=== PATIENT | female | born 1950 | race Caucasian/White ===

== ENCOUNTER → 2017-10-23 | Outpatient (CLI) | payer MEDICARE ==
--- NOTE | 2017-10-23 18:02 | MR ---
EXAMINATION TYPE: MR knee LT wo con DATE OF EXAM: 10/23/2017 COMPARISON: Outside radiographs dated 10/06/2017 HISTORY: Inner and outer knee pain after injury in February 2017. The patient notes this was a twisting in jury TECHNIQUE: Multiplanar, multisequence imaging of the left knee is performed without IV contrast. FINDINGS: MEDIAL MENISCUS: The posterior horn of the medial meniscus is diminutive in size in comparison to the anterior horn and also heterogenous signal without distinct tear although tear is suspected based on morphology. A radial cleft is seen on the coronal PD fat-sat image 18 through 20. There is no menisc al cyst or extension into the posterior root. LATERAL MENISCUS: There is a complex tear of the anterior horn of the lateral meniscus as it is dimin utive and caliber in comparison to the posterior horn with heterogenous internal signal. This extends into the meniscal root anteriorly with 8 mm meniscal cyst at the meniscal root and 5 mm meniscal cys t along the lateral tibial plateau. CRUCIATE LIGAMENTS: There is diffuse thickening of the anterior cruciate ligament suggestive of mucin ous degeneration. No evidence of tear of the anterior or posterior cruciate ligament. COLLATERAL LIGAMENTS: The medial collateral ligament and lateral collateral ligament complex are inta ct although high signal is seen superficial to the MCL fibers indicative of grade 1 (low-grade) MCL s prain. MCL fibers are intact. EXTENSOR MECHANISM: Visualized quadriceps and patellar tendons are intact. EFFUSION: Moderate suprapatellar joint effusion with minimal internal complexity indicating synoviti s is seen with nonspecific prepatellar and infrapatellar subcutaneous edema. POPLITEAL CYST: Large multiloculated popliteal cyst emanates from the medial head of the gastric ane mias and semimembranosus tendon measuring 19.8 x 6.1 x 3.3 cm. CARTILAGE: Focal full-thickness cartilage defect of the weightbearing surface of the medial femoral c ondyle measures at least 1.7 x 1.9 cm with a PD hypointense curvilinear fragment with surrounding hyp erintensity suggestive of unstable osteochondral defect. There is global heterogeneity and mild thinning of the lateral compartment cartilage without focal de fect. There is focal fissuring of the patellar apex with underlying linear bone marrow edema. Heterog eneity of the lateral facet is also seen as well as heterogeneity of the trochlear cartilage without tear. Tricompartmental joint space narrowing is also noted. BONE MARROW SIGNAL: No focal abnormal marrow signal is appreciated. OTHER: High signal surrounds the semimembranosus tendon and there is some signal duration within the semimembranosus tendon near its insertion suggesting low-grade muscular strain. IMPRESSION: 1. Complex tear of the anterior horn of the lateral meniscus extending into the meniscal root with 8 mm meniscal root cyst and 5 mm meniscal cyst along the lateral tibial plateau. 2. Complex but predominantly radial tear of the posterior horn of the medial meniscus without menisca l cyst or extrusion. 3. Moderate mildly complex suprapatellar joint effusion indicating synovitis. Nonspecific prepatellar and infrapatellar subcutaneous edema. 4. Grade 1 MCL sprain without discontinuity. 5. Full-thickness cartilaginous defect of the weightbearing surface of the medial femoral condyle bashir suring 1.7 x 1.9 cm with underlying unstable osteochondral defect. 6. Tricompartmental chondrosis and osteoarthritic changes. 7. Large multiloculated popliteal cyst measuring up to 19.8 cm in craniocaudal dimension. 8. Low-grade semimembranosus tendinosis. 9. Mucoid degeneration of the ACL.
== END ==
LOC: RADMRIMAIN 13:02
PROVIDERS: ATTEND Orthopaedic Surgery
DX: M23.052 Cystic meniscus, posterior horn of lateral meniscus, left knee (principal); M17.12 Unilateral primary osteoarthritis, left knee; M71.22 Synovial cyst of popliteal space [Baker], left knee; M65.9 Synovitis and tenosynovitis, unspecified; M94.8X6 Other specified disorders of cartilage, lower leg

== ENCOUNTER 2017-12-09 09:11 | Day surgery (SDC) | payer MEDICARE ==
[2017-12-04 11:29] VITALS: BMI 29.9
--- NOTE | 2017-12-08 12:37 | HP ---
HISTORY AND PHYSICAL DATE OF SERVICE: 12/09/2017 Bernadette Flynn is a 67-year-old patient seen with progressive left knee pain. Treatment options were discussed with her. She elected to proceed with arthroscopy. Consent was obtained. Medical clearance was provided by Dr. Arechiga. PAST MEDICAL HISTORY: Hypertension, hypothyroidism, hyperlipidemia. PAST SURGICAL HISTORY: Right ankle surgery, cardiac catheterization, hysterectomy, right knee arthroscopy, left shoulder arthroscopy, thyroidectomy. DAILY MEDICATIONS: 1. Altace. 2. Cardizem. 3. Flexeril. 4. Lipitor. 5. Mobic. 6. Synthroid. 7. Zyrtec. ALLERGIES: PENICILLIN, NORVASC, FLAGYL. SOCIAL HISTORY: Patient denies current tobacco use. PHYSICAL EVALUATION OF THE LEFT KNEE: Range of motion is 0 to 125 degrees. Tenderness along the medial and lateral joint lines. Positive medial Hayde's. Positive lateral Hayde's. Crepitus medial and patellofemoral compartments. Ligaments stable. Hip rotation without pain. Distal neurovascular exam intact. Left knee radiographs revealed mild osteoarthritis. MRI of the left knee revealed medial and lateral meniscal tears. IMPRESSION: 1. Internal derangement of the left knee with medial and lateral meniscal tears. 2. Hypertension. 3. Hypothyroidism. 4. Hyperlipidemia. PLAN: Left knee arthroscopy with partial meniscectomy and debridement. MMODL / IJN: [id number] /
[~2017-12-09 09:11] MED LIST: CLINDAMYCIN 900 MG in DEXTROSE 5% IN WATER 50 ML IVPB ONE; LACTATED RINGERS 1,000 ML IV SCH
[2017-12-09 10:04] VITALS: TEMP 97.2
[2017-12-09] MEDS ORDERED: DEXAMETHASONE SOD PHOS (MDV) 100 MG/10 ML VIAL IV ONE (10:20)
[2017-12-09] MEDS ORDERED: ONDANSETRON 4 MG/2 ML VIAL IVP ONE (10:20)
[2017-12-09] MEDS ORDERED: LIDOCAINE 1% 20 ML VIAL (10MG/ML) FOR IV START INTRADERMA ONE (10:20)
[2017-12-09] MEDS ORDERED: HYDROmorphone (PF) 1 MG/ML ONE (12:05)
[2017-12-09] MEDS ORDERED: KETOROLAC 30 MG/ML 1 ML VIAL ONE (12:05)
[2017-12-09] MEDS ORDERED: LIDOCAINE 1% INJ 10MG/ML (20 ML MDV) ONE (12:05)
[2017-12-09] MEDS ORDERED: fentaNYL (PF) 50 MCG/ML 2 ML AMP ONE (12:05)
[2017-12-09] MEDS ORDERED: MIDAZOLAM 2 MG/2 ML VIAL ONE (12:05)
[2017-12-09] MEDS ORDERED: PROPOFOL 10 MG/ML 20 ML VIAL IV ONE (12:05)
[2017-12-09] MEDS ORDERED: BUPIVACAINE (PF) 0.25% 30 ML VIAL SQ ONE ×2 (12:23→12:40)
--- NOTE | 2017-12-09 12:54 | P.OP ---
Date of Procedure: 12/09/17 Preoperative Diagnosis: Internal derangement left knee Postoperative Diagnosis: 1. Tear medial and lateral meniscus left knee 2. Grade 3/4 chondromalacia medial femoral condyle left knee 3. Grade 2 chondromalacia lateral tibial plateau left knee 4. Grade 3 chondromalacia patella left knee 5. Reactive synovitis medial and suprapatellar compartments left knee Procedure(s) Performed: 1. Arthroscopic partial medial and lateral meniscectomy left knee 2. Arthroscopic chondroplasty medial femoral condyle left knee 3. Arthroscopic chondroplasty lateral tibial plateau left knee 4. Arthroscopic chondroplasty patella left knee 5. Arthroscopic partial synovectomy medial and suprapatellar compartments left knee Implants: None Anesthesia: INDIGOA, local Surgeon: Damian Hunt Estimated Blood Loss (ml): 5 Pathology: none sent Condition: stable Disposition: PACU Indications for Procedure: 67-year-old patient seen with progressive left knee pain. After having treatment options discussed, she elected to proceed with arthroscopy. Operative Findings: See description of procedure Description of Procedure: Patient was taken to the operative suite. Patient underwent a general anesthetic by the department of anesthesia. Patient was given preoperative antibiotics. The left lower extremity was placed in a well-padded arthroscopic leg holbrook. The left leg was prepped and draped in the normal sterile orthopedic fashion. A lateral parapatellar and suprapatellar incision was made. Trochars were inserted. Arthroscopy was initiated. Suprapatellar pouch revealed diffuse thick reactive synovitis. The patellofemoral joint appeared to articulate congruently. There was grade 3 chondromalacia of the patella mainly involving the lateral facet with osteochondral tears. The scope was guided into the medial gutter. No loose bodies or plica were identified. The scope was then guided into the medial compartment. A medial parapatellar incision was made. Trocar inserted followed by probe. There was a complex tear posterior horn medial meniscus extending into the midbody. There was an area of grade 3/4 chondromalacia weightbearing surface medial femoral condyle with peripheral osteochondral tears present. There was synovitis anteriorly. I performed a partial medial meniscectomy down to stable tissue. I performed a chondroplasty of the femoral condyle down to stable tissue and partial synovectomy. The residual meniscus and osteochondral surface were found to be stable. Scope and probe were then guided into the intercondylar notch. Cruciates were identified, probed and found to be stable. The scope and probe were then guided into lateral compartment. There was a radial tear mid body lateral meniscus. There were grade 2 chondromalacia changes of the lateral tibial plateau with some osteochondral tears present. The medial femoral condyle revealed grade 1 chondromalacia but no osteochondral tears. I performed a partial lateral meniscectomy down to stable tissue. I performed a chondroplasty of the lateral tibial plateau down to stable tissue. The residual meniscus and osteochondral surface of the lateral tibial plateau were probed and found to be stable. The scope was in guided back into the suprapatellar compartment. I introduced a motorized shaver into the suprapatellar compartment. I debrided some piecemeal fragments of meniscus I encountered. I performed a chondroplasty of the patella down to stable tissue. I performed a partial synovectomy. Shaver was removed. I took one more look on the entire knee, no residual debris. Instruments were now removed from the joint. The joint was infiltrated with .25% Marcaine. Steri-Strips were applied to the portal sites. Sterile dressings were applied. The patient was placed into a ISAAC hose. No tourniquet was utilized. The patient was awakened, transferred to a bed and taken to recovery stable satisfactory condition.
[2017-12-09] MEDS ORDERED: HYDROmorphone 0.5 MG/0.5 ML SYRINGE IVP ONE (13:18)
[2017-12-09] MEDS ORDERED: PROMETHAZINE INJ 25 MG/ML 1 ML VIAL IVPB ONE (13:54)
[2017-12-09 14:04] VITALS: RESP 18
[2017-12-09] MEDS ORDERED: HYDROcodone/APAP 5-325MG 1 EACH TAB PO ONE (15:01)
[2017-12-09 15:09] VITALS: PULSE 89
[2017-12-09 15:18] VITALS: BP 121/81
== END 2017-12-09 16:21 | disposition home or self-care (01) ==
LOC: OR 09:11
PROVIDERS: ATTEND Orthopaedic Surgery
DX: S83.232A Complex tear of medial meniscus, current injury, left knee, initial encounter (principal); S83.282A Other tear of lateral meniscus, current injury, left knee, initial encounter; X58.XXXA Exposure to other specified factors, initial encounter; M94.262 Chondromalacia, left knee; M22.42 Chondromalacia patellae, left knee; M65.862 Other synovitis and tenosynovitis, left lower leg; I10 Essential (primary) hypertension; I25.10 Atherosclerotic heart disease of native coronary artery without angina pectoris; E78.2 Mixed hyperlipidemia; M19.012 Primary osteoarthritis, left shoulder; E89.0 Postprocedural hypothyroidism; E55.9 Vitamin D deficiency, unspecified; J30.1 Allergic rhinitis due to pollen; M54.5 Low back pain; G89.29 Other chronic pain; N95.8 Other specified menopausal and perimenopausal disorders; M85.80 Other specified disorders of bone density and structure, unspecified site; Z79.82 Long term (current) use of aspirin; Z79.890 Hormone replacement therapy; Z79.1 Long term (current) use of non-steroidal anti-inflammatories (NSAID); Z79.51 Long term (current) use of inhaled steroids; Z79.899 Other long term (current) drug therapy; Z88.0 Allergy status to penicillin; Z88.8 Allergy status to other drugs, medicaments and biological substances; Z87.891 Personal history of nicotine dependence
CPT/HCPCS: 29880; J2250; J2550; J2405; J2001; J3010; J1885; J1170 ×2; J1100; J2704